=== PATIENT | male | born 1945 | race Caucasian/White ===

== ENCOUNTER → 2019-12-22 08:30 | Outpatient (CLI) | payer MEDICARE, OTHER ==
[2019-12-22 09:16] LABS: CHOL - HDL RATIO 1.8 ratio (2.3-4.9); LDL-HDL RATIO 0.7 ratio (1.5-3.5)
== END | disposition home or self-care (01) ==
LOC: D.LAB 08:30
DX: E78.5 Hyperlipidemia, unspecified (principal)